=== PATIENT | male | born 1960 | race Hispanic/Latino ===

== ENCOUNTER 2018-12-07 15:45 | Emergency (ER) | payer MEDICARE ==
[2018-12-07] MEDS ORDERED: ACETAMINOPHEN EXTRA STRENGTH 500 MG TABLET ONE (16:54)
== END 2018-12-07 18:02 | disposition home or self-care (01) ==
LOC: EDH 15:45
DX: G57.02 Lesion of sciatic nerve, left lower limb (principal); I10 Essential (primary) hypertension; E11.9 Type 2 diabetes mellitus without complications; Z79.4 Long term (current) use of insulin; Z94.0 Kidney transplant status; Z98.890 Other specified postprocedural states
CPT/HCPCS: 93971